=== PATIENT | male | born 1990 | race Hispanic/Latino ===

== ENCOUNTER 2017-09-07 10:41 | Emergency (ER) | payer SELFPAY ==
[2017-09-07] MEDS ORDERED: Ciprofloxacin HCL/Dexameth Otic Drops 7.5 ml Bottle ONE (14:50)
== END 2017-09-07 14:57 | disposition home or self-care (01) ==
LOC: EDBD 10:41 → ERS 10:41
DX: T16.1XXA Foreign body in right ear, initial encounter (principal); F17.210 Nicotine dependence, cigarettes, uncomplicated; W45.8XXA Other foreign body or object entering through skin, initial encounter
CPT/HCPCS: 69200